=== PATIENT | male | born 1995 | race Caucasian/White ===

== ENCOUNTER 2022-12-22 10:29 | Emergency (ER) | payer OTHER ==
[~2022-12-22] VITALS: Ht 167.6 cm; Wt 80.5 kg
[2022-12-22 12:07] LABS: BASO % 0.9 % (0.0-1.0); EOS # 0.2 10^3/uL (0.0-0.5); HEMATOCRIT 46.6 % (42.0-52.0); HEMOGLOBIN 16.2 g/dl (13.5-17.5); LYMPH # 1.3 10^3/uL (1.5-5.0); LYMPH % 29.1 % (24.0-44.0); MEAN CORPUSCULAR HEMOGLOBIN 29.7 pg (27.0-33.0); MEAN CORPUSCULAR HGB CONC 34.8 g/dl (32.0-36.5); MEAN CORPUSCULAR VOLUME 85.3 fl (80.0-96.0); MONO # 0.4 10^3/uL (0.0-0.8); MONO % 8.3 % (2.0-8.0); NEUTROPHILS # 2.6 10^3/uL (1.5-8.5); NEUTROPHILS % 57.5 % (36.0-66.0); PLATELET COUNT, AUTOMATED 225 10^3/uL (150-450); RED BLOOD COUNT 5.46 10^6/uL (4.30-6.10); WHITE BLOOD COUNT 4.5 10^3/uL (4.0-10.0)
[2022-12-22 12:19] LABS: INR 0.99; PROTHROMBIN TIME 13.3 SECONDS (12.5-14.5)
[2022-12-22 12:20] LABS: PARTIAL THROMBOPLASTIN TIME 29.2 SECONDS (24.8-34.2)
[2022-12-22 12:22] LABS: D-DIMER QUANT 305.54 ng/ml (<500)
[2022-12-22 12:36] LABS: LIPASE 29 U/L (12-53)
[2022-12-22 12:38] LABS: ALBUMIN 4.9 G/DL (3.2-5.2); ALKALINE PHOSPHATASE 91 U/L (46-116); ALT/SGPT 28 U/L (7.0-40); AST/SGOT 24 U/L (<34); BILIRUBIN,DIRECT 0.8 MG/DL (<0.4); BILIRUBIN,TOTAL 2.3 MG/DL (0.3-1.2); CK-MB VALUE MASS < 1.0 NG/ML (<3.6); TOTAL PROTEIN 7.6 G/DL (5.7-8.2)
[2022-12-22 12:40] LABS: MONO REFLEX EBV COMP NEGATIVE (NEGATIVE)
[2022-12-22 12:43] LABS: CPK CREATINE PHOSPHOKINASE 169 U/L (46-171); MB/CK RELATIVE INDEX 0.59 (< OR =4)
[2022-12-22] MEDS ORDERED: ISOVUE-370 76% 100ML VIAL As Ordered ONE (14:00)
[2022-12-22 15:33] VITALS: BP 134/89
[2022-12-25 17:11] LABS: EBV VIRAL CAPSID AG IgG >600.0 U/mL (0.0-17.9); EBV VIRAL CAPSID AG IgM <36.0 U/mL (0.0-35.9)
== END 2022-12-22 15:36 | disposition home or self-care (01) ==
LOC: M ED 10:29
DX: R10.9 Unspecified abdominal pain (principal); K76.9 Liver disease, unspecified; R53.81 Other malaise; R53.83 Other fatigue; F41.9 Anxiety disorder, unspecified; F12.10 Cannabis abuse, uncomplicated
CPT/HCPCS: 36415; 71046; 74177; 80047; 80076; 82550; 82553; 83690; 84484; 85025; 85379; 85610; 85730; 86308; 86664; 86665; 93005; 99284; Q9967